=== PATIENT | female | born 1980 | race Two or more races ===

== ENCOUNTER → 2024-02-18 | Outpatient (CLI) | payer MEDICAID, SELFPAY ==
--- NOTE | 2024-02-18 11:15 | XR_ITS ---
Examination: Screening digital mammography, bilateral Computer aided detection 3-D breast Tomosynthesis, bilateral Date and time of exam: February 18, 2024 1117 hours Indication: Screening Technique: Nonmagnified MLO, CC views of the breasts to been obtained, reconstructed from 3-D Tomosynthesis images. R2 computer aided detection program utilized for evaluation of suspicious masses and/or abnormal calcifications. 3-D Tomosynthesis images obtained. Findings: The breasts are heterogeneously dense, which may obscure small masses Grouped microcalcifications 12:00 position right breast Impression: BI-RADS Category 0: Incomplete: Need additional imaging evaluation Grouped microcalcifications 12:00 position right breast, recommend follow-up spot magnification views of these calcifications as well as right breast sonography to complete the workup
== END | disposition home or self-care (01) ==
PROVIDERS: PCP Nurse Practitioner Family; Referring Provider Nurse Practitioner Family; Visit Provider Nurse Practitioner Family
DX: Z12.31 Encounter for screening mammogram for malignant neoplasm of breast (principal); R92.0 Mammographic microcalcification found on diagnostic imaging of breast
CPT/HCPCS: 77063; 77067

== ENCOUNTER → 2024-04-07 | Outpatient (CLI) | payer MEDICAID, SELFPAY ==
--- NOTE | 2024-04-07 14:30 | XR_ITS ---
Examination: Breast ultrasound complete, bilateral Date and time of exam: April 07, 2024 1434 hrs. Indications: Mammogram February 18, 2024 grouped microcalcifications 12:00 position right breast Technique: Real-time grayscale ultrasonographic imaging bilateral breasts, including all 4 quadrants as well as nipple retroareolar and axillary regions. Findings: Sonographic images right breast 12:00 cyst 15 x 12 mm 12:00 cyst 26 x 22 mm 1:00 round nodule circumscribed 3 x 3 mm 9:00 cyst 21 x 14 mm 10:00 cyst 7 x 9 mm Sonographic images left breast 12:00 cyst 4 x 4 millimeter 2:00 oval mass circumscribed 2 x 2 mm 7:00 oval mass circumscribed 3 x 4 mm Impression: BI-RADS Category 2: Benign findings
--- NOTE | 2024-04-07 15:30 | XR_ITS ---
Examination: Diagnostic digital mammography, unilateral, right Computer aided detection 3-D breast Tomosynthesis, unilateral Date and time of exam: 04/07/2023, 2:55 PM Comparisons: August 02 Indications: Further evaluation of calcifications seen on recent screening exam. Technique: Nonmagnified MLO, CC views of the right breast have been obtained, reconstructed from 3-D Tomosynthesis images. R2 computer aided detection program utilized for evaluation of suspicious masses and/or abnormal calcifications. 3-D Tomosynthesis images obtained. Technologist: Findings: The breasts are heterogeneously dense, which may obscure small masses. Scattered punctate calcifications appear benign. No evidence of suspicious grouping or morphology. No evidence of abnormal masses. Impression: Benign-appearing calcifications. BI-RADS category 2: Benign findings Recommend 1 year follow-up mammogram
== END | disposition home or self-care (01) ==
PROVIDERS: PCP Family Medicine; Referring Provider Family Medicine; Visit Provider Family Medicine
DX: R92.321 Mammographic fibroglandular density, right breast (principal); R92.1 Mammographic calcification found on diagnostic imaging of breast
CPT/HCPCS: 76641; 77061; 77065; G0279